=== PATIENT | male | born 1965 | race African-American/Black ===

== ENCOUNTER 2016-09-28 08:31 | Emergency (ER) | payer OTHER ==
--- NOTE | ~2016-09-28 | CR133 ---
[facility] A Service of [facility] & [facility] RADIOLOGY TEXT RESULTS PATIENT: ALBINO MOURA LOCATION: [facility] : [birth year] UNIT #: [id number] AGE: [address]: Malik Tse SEX: M ORDER DR: [id number] [place], [place] [address] [id number] E MR#: [id number] Acc #: [id number] NAME: ALBINO MOURA : 1965 SEX: M STUDY DATE/TIME: 09/28/2016 10:17 UNIT: [facility] ROOM: STUDY DESCRIPTION: CR Forearm 2 View Rt Attending Physician: Malik Tse Ordering Physician: Malik Tse Primary Care Physician: Primary Care Physician No MEDICAL IMAGING REPORT This report is preliminary unless electronic signature is present EXAM Right forearm, 09/28/2016. HISTORY 51-year-old male with right arm pain for 3 days. COMPARISON Right elbow same date. FINDINGS 2 views of the right forearm demonstrate no acute fracture or dislocation. Soft tissues are unremarkable. IMPRESSION Unremarkable right forearm. Dictated by... Ryder Tan M.D. THIS IS AN ELECTRONICALLY VERIFIED REPORT Ryder Tan M.D. at 09/30/2016 9:08 AM ROBYN/nhoelia TD: 09/28/2016 10:33 JOB #: [id number] MEDICAL IMAGING REPORT Page 1 of 1 COPY
--- NOTE | ~2016-09-28 | CR94 ---
[facility] A Service of [facility] & [facility] RADIOLOGY TEXT RESULTS PATIENT: ALBINO MOURA LOCATION: [facility] : 69 UNIT #: [id number] AGE: [address]: Malik Tse SEX: M ORDER DR: [id number] [place], [place] [address] [id number] E MR#: [id number] Acc #: [id number] NAME: ALBINO MOURA : 1965 SEX: M STUDY DATE/TIME: 09/28/2016 10:18 UNIT: [facility] ROOM: STUDY DESCRIPTION: CR Elbow Min 3 Views Rt Attending Physician: Malik Tse Ordering Physician: Malik Tse Primary Care Physician: Primary Care Physician No MEDICAL IMAGING REPORT This report is preliminary unless electronic signature is present EXAM Right elbow, 09/28/2016. HISTORY Right elbow pain for 3 days. COMPARISON Right forearm same date. FINDINGS 3 views of the right elbow demonstrate no acute fracture or dislocation. No joint effusion. Soft tissues are unremarkable. IMPRESSION Unremarkable right elbow. Dictated by... Ryder Tan M.D. THIS IS AN ELECTRONICALLY VERIFIED REPORT Ryder Tan M.D. at 09/30/2016 9:08 AM ROBYN/nohelia TD: 09/28/2016 10:38 JOB #: [id number] MEDICAL IMAGING REPORT Page 1 of 1 COPY
== END 2016-09-28 12:12 | disposition home or self-care (01) ==
LOC: CED 08:31
DX: S56.911A Strain of unspecified muscles, fascia and tendons at forearm level, right arm, initial encounter (principal); E11.9 Type 2 diabetes mellitus without complications; I10 Essential (primary) hypertension; X50.0XXA Overexertion from strenuous movement or load, initial encounter; Y92.9 Unspecified place or not applicable
CPT/HCPCS: 73080; 73090; 99283